=== PATIENT | male | born 1975 | race Caucasian/White ===

== ENCOUNTER → 2021-01-25 00:26 | Outpatient (CLI) | payer OTHER, SELFPAY ==
[2021-01-25 17:56] LABS: SARS-CoV-2 RNA PCR Negative
== END ==
PROVIDERS: PCP Family Medicine; Visit Provider Surgery
DX: Z01.812 Encounter for preprocedural laboratory examination (principal); Z20.822 Contact with and (suspected) exposure to COVID-19
CPT/HCPCS: C9803; U0003; U0005

== ENCOUNTER 2021-01-28 02:10 | Day surgery (SDC) | payer OTHER, SELFPAY ==
[2021-01-23 09:27] VITALS: BMI 38.5
[2021-01-28] MEDS: LACTATED RINGERS 1,000 ML 30 ML IV CONT (10:56)
--- NOTE | 2021-01-28 11:01 | PM.HPGS ---
History of Present Illness History of Present Illness Consent: Risks, benefits, and alternativesOf removal of a Port-A-Cath have been discussed and questions answered. Patient agrees to proceed with procedure. Chief complaint: presence of other vascular implant/graft Narrative: Buck Love is a 45 year old male approximately 20 years ago had testicular cancer. At the time of treatment he had a Port-A-Cath placed. Subsequently apparently his oncologist never send him for removal of the Port-A-Cath once he was felt to be in remission. Patient presents at this time for movable the Port-A-Cath. He has been having no problems with these had no inflammation and surrounding the port or catheter and no history of blood clots. Review of Systems Constitutional: Constitutional: Reports no additional constitutional complaints, Reports fatigue and Denies malaise Eyes: Eyes: Denies change in vision and Denies loss of vision ENT: Reports Normal hearing present, Denies change in voice, Denies dizziness, Denies hoarseness and Denies sore throat Cardiovascular: Cardiovascular: Denies chest pain, Denies leg edema and Denies dyspnea Comments: History of hypertension fairly well controlled on medications. Respiratory: Respiratory: Denies cough, Denies dyspnea and Denies wheezing Gastrointestinal: Gastrointestinal: Denies hematochezia, Denies change in bowel habits, Denies heartburn, Denies nausea and Denies vomiting Comments: History of placement of a laparoscopic gastric band 3 years ago with 90 lbs. of weight loss following the procedure. This latter loss of weight was mostly because he and his decided to go on a low carb diet. Genitourinary: Genitourinary: Denies urinary frequency and Denies urinary incontinence Comments: History of testicular cancer many years ago now in remission. 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 Almost 20 years ago. This was for testicular cancer. Neurologic: Reports Normal hearing present, Denies confusion, Denies dizziness, Denies loss of vision, Denies memory loss and Denies seizure-like activity Psychiatric: Psychiatric: Denies confusion, Denies depression and Denies memory loss Endocrine: Endocrine: Denies cold intolerance and Reports fatigue Hematologic/Lymphatic: Hematologic/Lymphatic: Denies easy bleeding and Denies easy bruising Allergic/Immunologic: Allergic/Immunologic: Denies wheezing PMFSH Past Medical History Medical History (Updated 01/28/21 @ 11:12 by Tunde Rose MD) Asthma Essential hypertension Hematuria History of hiatal hernia repaired History of testicular cancer Obesity (BMI 35.0-39.9 without comorbidity) Wellness examination Surgical History Surgical History LAP-BAND surgery status Family History Family History Mother Family history of lupus erythematosus Family history of diabetes mellitus in first degree relative Other Cerebrovascular accident Diabetes mellitus Family history of cardiovascular disease Hypertension Social History Social History Smoking packs per day: 0.75 Smoking cigarettes per day: 15.0 Years smoked: 15 Smoking pack-years: 11.25 Smoking status: Current every day smoker Tobacco type: cigarettes and e-cigarettes/vaping Smoking end date: 08/16/10 Additional smoking assessment comments: SWITCH TO VAPE 2014 Alcohol intake: current Drinks per week: 5 Substance use: never Substance use type: does not use Living arrangements: with family Spiritual care concerns: No Meds Home Medications and Allergies Home Medications Medication Instructions Recorded Confirmed Type amlodipine 5 mg tablet 5 mg PO DAILY #30
[2021-01-28 11:09] VITALS: BP 138/65; PULSE 61; RESP 18; TEMP 36.3; O2SAT 98
--- NOTE | 2021-01-28 11:25 | WPDANESEPPF ---
Anes - Initial Pre Proc Eval Procedure: Operation Date: 01/28/21 12:00 Proposed Procedures p Removal Lea Cath - Tunde Rose MD Date/Time: 01/28/21 11:25 Surgeon: Tunde Rose MD Pre Op Diagnosis: presence of other vascular implant/graft Patient Data Age: 45 Gender: M Height: 1.77 m Weight: 120.7 kg Last Vital Signs Temp 36.3 C L 01/28/21 11:09 Pulse 61 01/28/21 11:09 Resp 18 01/28/21 11:09 BP 138/65 01/28/21 11:09 Pulse Ox 98 01/28/21 11:09 Allergies Allergy/AdvReac Type Severity Reaction Status Date / Time No Known Drug Allergies Allergy unk Verified 01/28/21 11:07 Home Medications Medication Instructions Recorded Confirmed Type amlodipine 5 mg tablet 5 mg PO DAILY #30 tablet 01/16/21 01/28/21 Rx lisinopril 20 mg tablet 20 mg PO DAILY #90 tablet 01/16/21 01/28/21 Rx Patient hx anesthesia problems: none Family hx anesthesia problems: none PMFSH Past Medical History Medical History (Updated 01/28/21 @ 11:12 by Tunde Rose MD) Asthma Essential hypertension Hematuria History of hiatal hernia repaired History of testicular cancer Obesity (BMI 35.0-39.9 without comorbidity) Wellness examination Surgical History Surgical History LAP-BAND surgery status Family History Family History Mother Family history of lupus erythematosus Family history of diabetes mellitus in first degree relative Other Cerebrovascular accident Diabetes mellitus Family history of cardiovascular disease Hypertension Social History Social History Smoking packs per day: 0.75 Smoking cigarettes per day: 15.0 Years smoked: 15 Smoking pack-years: 11.25 Smoking status: Current every day smoker Tobacco type: cigarettes and e-cigarettes/vaping Smoking end date: 08/16/10 Additional smoking assessment comments: SWITCH TO VAPE 2014 Alcohol intake: current Drinks per week: 5 Substance use: never Substance use type: does not use Living arrangements: with family Spiritual care concerns: No Anes - Eval Final PreProcedure Day of Procedure 01/28/21 11:25 Patient weight: obese Heart: regular rate and rhythm Lungs: clear to auscultation and normal air movement Airway: Mallampati scale class II Neurological: alert and oriented Last oral intake: >/= 8 hours ASA classification: III Emergent: no Anesthetic plan: proceed Anesthesia type and monitoring: general GIVS and standard monitoring Informed Consent: The patient's anesthetic plan and its attendant risks and benefits were discussed with the patient/family/POA. Questions were solicited and answers provided to the satisfaction of the patient/family/POA.
--- NOTE | 2021-01-28 12:10 | WPDHPUPDATE1 ---
History and Physical Update Update Date/Time: 01/28/21 12:10 History and Physical has been reviewed, including an updated exam of the patient. There are NO changes in the patient's condition. Risks, benefits, and alternatives have been discussed and questions answered. Patient agrees to proceed with procedure.
[2021-01-28] MEDS: ceFAZolin 3 GM/D5W 100 ML 100 ML IVPB (12:17)
[2021-01-28] MEDS: LIDO 2%/EPINEPHRINE 1:100,000 20 ML VIAL 17 ML INFILTRATE (12:47)
--- NOTE | 2021-01-28 13:13 | P.OP_ITS ---
Procedure Note - Detailed Date of Procedure 01/28/21 Pre-op Diagnosis presence of other vascular implant/graft Indwelling Lea-cath Post-op Diagnosis same Procedure Performed Removal of Lea-cath Surgeon Tunde Rose MD Casting Machine Adjuster HILDA Pereyra,OR Residence Counselor Anesthesia MAC and local (2% Xylocaine with Epi) Indications Patient has had a Port-A-Cath in for chemotherapy in the past. Now no longer in use. Plant to remove under local anesthetic. Description of Procedure Prior to the procedure the patient was seen in the holding area and the area of proposed surgery was marked. All questions were answered and the patient wished to proceed with removal of the Port-A-Cath. The patient was brought to the operating room and placed supine. The entire left lower neck, chest, and shoulder were prepped with chlorhexidine. The area was draped off. Time-out was performed confirming patient and site of surgery. Following this a 15 blade knife was used to make incision directly on the scar from the previous port placement. This was done after infiltrating local anesthetic into the area of and inferior to the scar and into the area of the pocket containing the port to some degree using 1% xylocaine with epinephrine. Following this we carefully dissected down to the junction of the port and catheter. Bovie cautery with needle-tip was used to carefully incise the capsule around the port and free up the scar tissue around the junction of the port and catheter. Two Prolene sutures that were holding the port to the underlying fascia were carefully excised with a 15 blade knife and mosquito hemostats. Following this the port was brought up and out of the pocket. Then watching the patient's respirations I carefully removed the catheter in one smooth pull while applying pressure in the lower right neck area at the catheter exit site as the patient was breathing out. Pressure was held for 1 minute. I used Bovie cautery on some the subcutaneous tissues as we waited for good clotting. Again hemostasis was checked in the wound using Bovie cautery for superficial hemostasis in the subcutaneous tissues. Following this closure was obtained with 2 layers. I used buried subcutaneous sutures of 3-0 Vicryl in the subcutaneous layer followed by a running subcuticular closure of 4-0 Monocryl on the skin. Patient tolerated the procedure well. Estimated blood loss was 3 cc Sponge, needle, and instrument counts were correct at the end the procedure and patient was taken to the outpatient recovery area in good condition. Implants none Drains No Packing No Pathology none sent Complications No immediate complications Condition stable Disposition same day
[2021-01-28 13:14] VITALS: BP 117/62; PULSE 65; RESP 14; O2SAT 98
[2021-01-28 13:40] VITALS: BP 120/57; PULSE 62; RESP 14; O2SAT 98
[2021-01-28 14:05] VITALS: BP 118/60; PULSE 62; RESP 14
== END 2021-01-28 14:13 | disposition home or self-care (01) ==
PROVIDERS: PCP Family Medicine; Visit Provider Surgery
PROC: (CPT 36589; principal; 2021-01-28 12:00)
DX: Z45.2 Encounter for adjustment and management of vascular access device (principal); Z92.21 Personal history of antineoplastic chemotherapy; I10 Essential (primary) hypertension; Z85.47 Personal history of malignant neoplasm of testis; E66.9 Obesity, unspecified; Z68.38 Body mass index [BMI] 38.0-38.9, adult; Z98.84 Bariatric surgery status; F17.290 Nicotine dependence, other tobacco product, uncomplicated
CPT/HCPCS: 36590; C9803; J0690; J2704; J3010; J7120; U0003; U0005

== ENCOUNTER 2021-07-17 14:34 | Outpatient (CLI) | payer OTHER, SELFPAY ==
--- NOTE | ~2021-07-17 | CT_ITS ---
EXAMINATION: CT abdomen pelvis wo/w con EXAM DATE: 07/17/2021 15:42 INDICATION: R10.32 - Left lower quadrant pain. TECHNIQUE: Spiral CT of the abdomen and pelvis was performed following intravenous injection of 100 m L Omnipaque 350. Axial, coronal and sagittal images of the abdomen and pelvis were reviewed. The do se-length product (DLP) for this examination was 2160.35 mGy-cm. The exposure was tailored according to patient size (auto mA exposure control), and iterative reconstruction (ASIR) was used as addition al dose reduction technique. There is no prior study for comparison. FINDINGS: There is anterior abdominal wall mesh extending to the right from the midline. To the left of this mesh there is a mild small to moderate-sized fat-containing abdominal wall hernia, between th e gastric banding device port and the umbilicus. There is another smaller fat-containing hernia just above this. The liver, spleen, adrenal glands and pancreas are unremarkable. Gallbladder is unremarkable. No bi liary obstruction. There is 2 mm stone within the lower pole of each kidney. Kidneys enhance symmetr ically, no hydronephrosis or ureteral stones. The prostate is unremarkable. The bladder is unremark able. Retroperitoneal surgical clips. There is no retroperitoneal or pelvic lymphadenopathy. There is mild scattered arteriosclerotic disease. The appendix is normal. Small bowel are unremarkable. There is moderate amount of colonic stool. No free intraperitoneal gas. The heart is normal in size. There are no pericardial or pleural effusi ons. The lung bases are unremarkable. The bones are unremarkable. IMPRESSION: 1. 2 supraumbilical abdominal wall fat-containing hernias just left of midline and just left to abdo norbert wall mesh. 2. Small bilateral nephrolithiasis. Reviewed, dictated and finalized at location A. ARD WORKER IMPRESSION: 1. 2 supraumbilical abdominal wall fat-containing hernias just left of midline and just left to abdominal wall mesh. 2. Small bilateral nephrolithiasis.
[2021-07-17 15:20] LABS: Estimated Glomerular Filt Rate > 60
== END 2021-07-17 14:35 | disposition home or self-care (01) ==
LOC: ANHIMG 14:42
PROVIDERS: PCP Family Medicine; Visit Provider Physician Assistant
DX: R10.32 Left lower quadrant pain (principal); R11.0 Nausea; K59.00 Constipation, unspecified; K42.9 Umbilical hernia without obstruction or gangrene; N20.0 Calculus of kidney
CPT/HCPCS: 74178; Q9967